=== PATIENT | male | born 1990 | race Caucasian/White ===

== ENCOUNTER 2022-02-24 16:24 | Emergency (ER) | payer BC, SELFPAY ==
[2022-02-24 16:36] VITALS: BP 136/97; PULSE 87; RESP 16; TEMP 36.8; O2SAT 99
--- NOTE | 2022-02-24 16:36 | ED.EAR ---
HPI - Ear Problem General Chief complaint: Ear Stated complaint: Ear Pain Time Seen by Provider: 02/24/22 16:36 Source: patient Mode of arrival: ambulatory Limitations: no limitations History of Present Illness HPI Narrative: 31 yo M presents with c/o pain to L ear and sore throat for several days. First had pain to L ear and then throat started. States hx of double ear infection. afebrile. No other symptoms. All systems reviewed and negative except as noted above. Related Data Allergies Allergy/AdvReac Type Severity Reaction Status Date / Time amoxicillin Allergy Mild Other Verified 02/24/22 16:26 Penicillins Allergy Unknown HIVES, Verified 02/24/22 16:26 RESP. DISTRESS Review of Systems Review of Systems: CONSTITUTIONAL: Denies fever, chills, or sweats. EYES: Denies visual changes, redness, or discharge. ENT: Denies rhinorrhea, congestion. Reports sore throat and left ear pain. CARDIOVASCULAR: Denies chest pain, palpitations, or edema. RESPIRATORY: Denies cough or dyspnea. GASTROINTESTINAL: Denies abdominal pain, nausea, vomiting, or diarrhea. GENITOURINARY: Denies dysuria or hematuria. SKIN: Denies rash or itching. MUSCULOSKELETAL: Denies back pain, joint pain, or myalgia. NEUROLOGIC: Denies headache, numbness, or weakness. PSYCHIATRIC: Denies anxiety or depression. All other systems reviewed are negative, except as documented in HPI. PMFSH Comments At time of signature, agree with nursing past medical, surgical, social and family history. There is no relevant family history pertinent to the presenting complaint. Exam Narrative: GENERAL: This is a well-nourished, well-developed patient, in no apparent distress. HEAD: normocephalic, atraumatic. EYES: PERRL. Sclera clear/white. Vision is grossly intact. EARS: External ears normal, auditory canals clear and without drainage. Fluid to bilateral TMs, more purulent appearing to left TM with mild bulging. No erythema. No perforation. NOSE: External nose normal with no obvious nasal discharge, nares without redness, no rhinorrhea. THROAT: Mucous membranes moist, swelling and erythema to posterior pharynx. Tonsils 1+ bilaterally with erythema. NECK: Neck supple, non-tender without lymphadenopathy, masses or thyromegaly. CARDIOVASCULAR: Regular rate and rhythm without murmurs, gallops, or rubs. RESPIRATORY: Clear to auscultation. Breath sounds equal bilaterally. No wheezes, rales, or rhonchi. SKIN: warm, Dry, intact with no suspicious lesions or rash, good texture and turgor. NEURO: awake, alert, and oriented to person, place and time. There were no obvious focal neurologic abnormalities. EXTREMITIES: No joint tenderness, effusion, or edema noted. Course Course Level of Care: Express Care Visit Vital Signs Vital signs: Vital Signs Temperature 36.8 C 02/24/22 16:36 Pulse Rate 87 02/24/22 16:36 Respiratory Rate 16 02/24/22 16:36 Blood Pressure 136/97 H 02/24/22 16:36 Pulse Oximetry 99 02/24/22 16:36 Oxygen Delivery Room Air 02/24/22 16:36 Temperature 36.8 C 02/24/22 16:36 Pulse Rate 87 02/24/22 16:36 Respiratory Rate 16 02/24/22 16:36 Blood Pressure 136/97 H 02/24/22 16:36 Pulse Oximetry 99 02/24/22 16:36 Oxygen Delivery Room Air 02/24/22 16:36 Reviewed Medical Decision Making MDM Narrative Medical decision making narrative: Patient is aware of diagnosis, understands and agrees to treatment plan. Anticipatory guidance given. Patient agrees to follow-up as directed and is aware of reasons to seek care at the emergency department. Portions of this record may have been created with voice recognition software Vital Signs Vital Signs: Vital Signs Temperature 36.8 C 02/24/22 16:36 Pulse Rate 87 02/24/22 16:36 Respiratory Rate 16 02/24/22 16:36 Blood Pressure 136/97 H 02/24/22 16:36 Pulse Oximetry 99 02/24/22 16:36 Oxygen Delivery Room Air 02/24/22 16:36 Temperature 36.8 C
== END 2022-02-24 16:56 | disposition home or self-care (01) ==
PROVIDERS: Emergency Provider Nurse Practitioner Family
DX: H65.02 Acute serous otitis media, left ear (principal)
CPT/HCPCS: 87081; 87880; 99213; G0463

== ENCOUNTER 2023-01-22 10:06 | Emergency (ER) | payer OTHER, BC, SELFPAY ==
--- NOTE | ~2023-01-22 | XR_ITS ---
XR finger 2nd LT min 2V 01/22/2023 10:32 INDICATION: Left second finger pain PROCEDURE: 4 views left second finger COMPARISON: No prior studies for comparison. FINDINGS: Fracture, dislocation or subluxation is not identified. The soft tissues appear within norm al limits. No foreign bodies are identified. IMPRESSION: 1: NO ACUTE BONE OR JOINT ABNORMALITY IDENTIFIED. Reviewed, dictated and finalized at location L.
--- NOTE | 2023-01-22 10:17 | ED.WOUNDLAC ---
HPI - Wound/Laceration General Chief Complaint: Wound/Laceration Stated Complaint: Laceration To Finger Time Seen by Provider: 01/22/23 10:18 Source: patient Mode of arrival: ambulatory Limitations: no limitations History of Present Illness HPI narrative: Mr. Rodriguez is a 32-year-old male patient presenting to the clinic today with complaints of a injury/laceration to his left index finger. 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 Bleeding controlled. Last tetanus was 2017. Has a 1.5 cm laceration to the volar aspect of the left mid index finger and a 1 cm laceration flap to the dorsal mid index finger Related Data Home Medications Medication Instructions Recorded Confirmed No Home Medications 01/22/23 01/22/23 Allergies Allergy/AdvReac Type Severity Reaction Status Date / Time amoxicillin AdvReac Mild Hives Verified 01/22/23 10:13 Penicillins AdvReac Mild Hives Verified 01/22/23 10:13 Review of Systems Review of Systems: Pertinent positives per HPI. Patient denies any fever, chills, rash, headache, visual changes, dizziness, cough, shortness of breath, chest pain, palpitations, nausea, vomiting, diarrhea, constipation, abdominal pain, or any urinary issues. PMFSH Comments At the time of my signature, I reviewed and agree with the nursing past medical, surgical, social, and family history. There is no relevant family history pertinent to the patient complaint. Exam Narrative: General: Well-developed, well nourished, in no apparent distress Head: Normocephalic, atraumatic. Cardio: Regular rate and rhythm, s1 and s2 normal, no murmur appreciated. Resp: Clear to auscultation bilaterally, no rhonchi, rales, wheezing or rubs. Musculoskeletal: No deformity, tenderness to palpation over the left mid 2nd phalanx, 1.5cm laceration to the volar aspect of the mid phalanx and 1 cm laceration to the dorsal mid phalanx, grossly normal range of motion, muscle strength strong and equal, peripheral pulse strong, no edema, no cyanosis, normal gait and station Course Course Emergency Course: Portions of this record may have been created with voice recognition software. Level of Care: Express Care Visit Vital Signs Vital signs: Vital signs reviewed Procedures Laceration Laceration 1: Date: 01/22/23 Site: hand (left 2nd finger-volar aspect) Side (If applicable): left Size (cm): 1.5 Description: linear Depth: simple, single layer Local Anesthetic: lidocaine 1% Amount of anesthesia used (mL): 4 Pre-repair: wound explored and irrigated ====== Skin Level ====== Skin layer closed with: nylon Size (cm): 4-0 Number of sutures: 4 Technique: simple, interrupted ====== Subcutaneous Layer ====== ====== Muscle Layer ====== ====== Tendon Layer ====== Dressing: Verbal consent obtained for laceration repair. Risk and benefits explained and patient voiced understanding. Area was cleansed with wound cleanser and a 25 gauge needle was then used to instill (4) ml of 1% lidocaine without epi into the the proximal finger/digital block. Area was prepped and draped using sterile technique. A 4-0 suture on a p needle was used to place (4) interrupted sutures bringing the wound edges together- well approximated. Patient tolerated procedure well. Sterile dressing applied. Laceration 2: Date: 01/22/23 Site: hand (Left 2nd finger-dorsal aspect) Side (If applicable): left Size (cm): 1 Description: flap Depth: simple, single layer Local Anesthetic: lidocaine 1% Amount of anesthesia used (mL): 1 Pre-repair: wound explored and irrigated ====== Skin Level ====== Skin layer closed with: nylon Size (cm): 4-0 Number of sutures: 2 Technique: simple, interrupted ====== Subcutaneous Layer ====== ====== Mu
[2023-01-22 10:18] VITALS: BP 120/93; PULSE 82; RESP 16; TEMP 36.4; O2SAT 97
== END 2023-01-22 11:24 | disposition home or self-care (01) ==
PROVIDERS: Emergency Provider Nurse Practitioner Family
DX: S61.211A Laceration without foreign body of left index finger without damage to nail, initial encounter (principal); X58.XXXA Exposure to other specified factors, initial encounter
CPT/HCPCS: 12001; 73140; 99213; G0463

== ENCOUNTER 2023-02-01 15:49 | Emergency (ER) | payer OTHER, BC, SELFPAY ==
--- NOTE | 2023-02-01 15:55 | ED.GENADULT ---
HPI - General Adult General Chief complaint: Wound/Laceration Stated complaint: Suture Removal Time Seen by Provider: 02/01/23 15:51 Source: patient Mode of arrival: ambulatory Limitations: no limitations History of Present Illness HPI narrative: Patient is a 32-year-old male who presents for suture removal of left index finger. Patient had 6 sutures placed 01/22. Still reports mild pain to finger has been taking Tylenol and ibuprofen. Patient has been putting ointment on finger after washing it with soap and water. Denies any numbness or tingling to finger Related Data Home Medications Medication Instructions Recorded Confirmed No Home Medications 01/22/23 02/01/23 Allergies Allergy/AdvReac Type Severity Reaction Status Date / Time amoxicillin AdvReac Mild Hives Verified 02/01/23 15:59 Penicillins AdvReac Mild Hives Verified 02/01/23 15:59 Review of Systems Review of Systems: All systems reviewed & are unremarkable except as noted in HPI and below Constitutional: Constitutional: Denies body ache(s), Denies chills, Denies fatigue, Denies fever(s), Denies headache(s), Denies malaise and Denies weakness Eyes: Eyes: Denies blurry vision, Denies irritation and Denies loss of vision ENT: Denies otalgia, Denies headache(s), Denies nasal discharge, Denies sinus pain and Denies sore throat Cardiovascular: Cardiovascular: Denies chest pain, Denies irregular heart rhythm and Denies dyspnea Respiratory: Respiratory: Denies dyspnea Gastrointestinal: Gastrointestinal: Denies abdominal pain, Denies melena, Denies hematochezia, Denies diarrhea, Denies nausea and Denies vomiting Musculoskeletal: Musculoskeletal: Denies back pain, Denies myalgias and Denies arthralgias Integumentary/Breasts: Skin/Breast: Denies pruritus and Denies rash Comments: Suture removal Neurologic: Denies headache(s), Denies loss of vision and Denies weakness Psychiatric: Psychiatric: Reports no additional psychiatric complaints Endocrine: Endocrine: Denies fatigue PMFSH Comments At time of signature, agree with nursing past medical, surgical, social and family history. There is no relevant family history pertinent to the presenting complaint. Exam Const: General: cooperative, healthy appearing, comfortable, no acute distress and well nourished Nutritional Appearance: well nourished Orientation/consciousness: patient oriented x3 Limitations: no limitations HENMT: Head: normal to inspection, normocephalic and atraumatic Ears: hearing grossly normal bilaterally and external ears normal Face/Nose/Sinus: Normal external nose present, normal facial exam and face symmetric Face and sinus: normal facial exam and face symmetric Mouth: Yes lip normal Eyes: General: appearance normal, both eyes and all related structures Alignment and Position: alignment normal and position normal Periorbital: periorbital findings normal Eyelids: eyelids normal Pupils: Equal, round and reactive pupils present EOM: EOMs intact bilaterally Neck: Neck: normal visual inspection, full ROM and supple Chest: Chest palpation & inspection: normal inspection of the chest Resp: Effort & Inspection: normal respiratory effort and able to speak in complete sentences Auscultation: clear to auscultation bilaterally Cardio: Rate: regular rate Rhythm: regular rhythm Heart sounds: S1 normal heart sound present and S2 normal heart sound present GI: Inspection: normal to inspection Skin: General skin exam: normal color and no rashes or lesions noted Neuro: General: patient oriented x3 and moves all extremities Cranial nerves: Yes Equal, round and reactive pupils present Speech: normal speech Gait exam (Neuro): Normal gait present Extrem: General: normal to inspection, full ROM and no edema Hand/finger images: 1. 2 sutures removed, well-approximated healing well 2. 4 sutures removed, healing well well-approximated Psych: Appearance: grossly normal and wel
[2023-02-01 16:00] VITALS: BP 136/85; PULSE 81; RESP 18; TEMP 36.9; O2SAT 98
== END 2023-02-01 16:13 | disposition home or self-care (01) ==
PROVIDERS: Emergency Provider Nurse Practitioner Family
DX: S61.211D Laceration without foreign body of left index finger without damage to nail, subsequent encounter (principal); X58.XXXD Exposure to other specified factors, subsequent encounter
CPT/HCPCS: 99211; G0463